=== PATIENT | female | born 1995 | race Asian ===

== ENCOUNTER 2020-03-08 22:35 | Emergency (ER) | payer MEDICAID ==
[~2020-03-08] VITALS: Ht 152.4 cm; Wt 51.7 kg
[2020-03-08 22:49] VITALS: BP 111/86
--- NOTE | 2020-03-08 23:00 | NUR ---
PT C/O SOB AND COUGH ALONG WITH CHEST PRESSURE X 2-3 DAYS. COUGH IS NONPRODUCTIVE, PT AFEBRILE, NO N/V/D. LUNG SOUNDS CLEAR. PT DENIES PREVIOUS TESTING FOR COVID. PT PLACED IN GOWN, BED IN LOWEST POSITION AND SIDERAIL UP X 1. NKA NO HX
--- NOTE | 2020-03-08 23:24 | NUR ---
EKG PERFORMED AT BEDSIDE. EKG READS SINUS RHYTHM @ 76
[2020-03-08 23:40] LABS: BASOPHILS % (AUTO) 0.6 % (0.0-2.0); EOSINOPHILS # (AUTO) 0.4 K/uL (0-0.4); EOSINOPHILS % (AUTO) 7.2 % (0.0-4.0); HEMATOCRIT 40.6 % (36-48); HEMOGLOBIN 13.8 g/dL (12.0-16.0); LYMPHOCYTES # (AUTO) 2.6 K/uL (2.5-16.5); LYMPHOCYTES % (AUTO) 42.9 % (20.5-51.1); MEAN CORPUSCULAR HEMOGLOBIN 33 pg (27-31); MEAN CORPUSCULAR HGB CONC 34 g/dL (33-37); MEAN CORPUSCULAR VOLUME 95.4 fL (80-94); MONOCYTES # (AUTO) 0.5 K/uL (0.8-1.0); MONOCYTES % (AUTO) 7.6 % (1.7-9.3); NEUTROPHILS # (AUTO) 2.5 K/uL (1.8-7.7); NEUTROPHILS % (AUTO) 41.7 % (42.2-75.2); PLATELET COUNT (AUTO) 186 K/uL (140-450); RED BLOOD CELL COUNT(AUTO) 4.25 MIL/uL (4.20-5.40); RED CELL DISTRIBUTION WIDTH 12.8 % (11.6-13.7)
--- NOTE | 2020-03-08 23:49 | NUR ---
X-RAY AT BEDSIDE
[2020-03-08 23:54] LABS: ANION GAP 14.9 (8-16); CREATININE 0.7 mg/dL (0.6-1.3); POTASSIUM 3.9 mmol/L (3.5-5.1)
[2020-03-09] LABS: ALBUMIN 4.4 g/dL (3.4-5.0); TOTAL BILIRUBIN 0.7 mg/dL (0.0-1.0)
[2020-03-09 00:40] VITALS: BP 109/82
--- NOTE | 2020-03-09 00:41 | NUR ---
Patient discharged with v/s stable. Written and verbal after care instructions given and explained. Patient alert, oriented and verbalized understanding of instructions. Ambulatory with steady gait. All questions addressed prior to discharge. ID band removed. Patient advised to follow up with PMD. Rx of ALBUTEROL, AFRIN, AND FLONASE given. Patient educated on indication of medication including possible reaction and side effects. Opportunity to ask questions provided and answered.
== END 2020-03-09 00:46 | disposition home or self-care (01) ==
LOC: MED 22:35
DX: J30.9 Allergic rhinitis, unspecified (principal); J40 Bronchitis, not specified as acute or chronic
CPT/HCPCS: 36415; 71045; 80053; 84484; 85025; 93005; 99285

== ENCOUNTER 2020-04-18 07:42 | Emergency (ER) | payer MEDICAID ==
[~2020-04-18] VITALS: Ht 154.9 cm; Wt 51.3 kg
[2020-04-18 08:20] VITALS: BP 101/56
--- NOTE | 2020-04-18 08:34 | NUR ---
24/F BIB SELF C/O R THIGH ABCESS X4 DAYS. DENIES N/V/D; SKIN IS PINK/WARM/DRY; AAOX4 WITH EVEN AND STEADY GAIT; LUNGS CLEAR BL; HR EVEN AND REGULAR; PT DENIES ANY FEVER, CP, SOB, OR COUGH AT THIS TIME; PATIENT STATES PAIN OF 7/10 AT THIS TIME. PATIENT POSITIONED FOR COMFORT; HOB ELEVATED; BEDRAILS UP X1; BED DOWN. ER MD MADE AWARE OF PT STATUS.
[2020-04-18 08:47] VITALS: BP 101/56
--- NOTE | 2020-04-18 08:48 | NUR ---
Patient discharged with v/s stable. Written and verbal after care instructions given and explained. Patient alert, oriented and verbalized understanding of instructions. Ambulatory with steady gait. All questions addressed prior to discharge. ID band removed. Patient advised to follow up with PMD. Rx of Keflex 500mg, Bactrim 800mg, and 600mg motrin given. Patient educated on indication of medication including possible reaction and side effects. Opportunity to ask questions provided and answered.
== END 2020-04-18 08:48 | disposition home or self-care (01) ==
LOC: MED 07:42
DX: L02.415 Cutaneous abscess of right lower limb (principal); L03.115 Cellulitis of right lower limb
CPT/HCPCS: 99283

== ENCOUNTER 2020-04-21 08:49 | Emergency (ER) | payer MEDICAID ==
[~2020-04-21] VITALS: Ht 162.6 cm; Wt 55.8 kg
[2020-04-21 08:58] VITALS: BP 132/78
[2020-04-21] MEDS ORDERED: LIDOCAINE MPF 1% 5 ML ONE (09:05)
--- NOTE | 2020-04-21 09:06 | NUR ---
PT PLACED IN BED 12.
--- NOTE | 2020-04-21 09:10 | NUR ---
Dr. Cespedes at pt bedside.
--- NOTE | 2020-04-21 09:11 | NUR ---
24 y/o female c/o absess on right thigh X1week, 8/10 pain describes as pressure-like radiating to right leg. Denies PMH, RX NKA
[2020-04-21 09:28] VITALS: BP 132/78
--- NOTE | 2020-04-21 09:28 | NUR ---
Patient discharged with v/s stable. Written and verbal after care instructions given and explained. Patient alert, oriented and verbalized understanding of instructions. Ambulatory with steady gait. All questions addressed prior to discharge. ID band removed. Patient advised to follow up with PMD. Rx of bactrim DS 800mg-160mg tab BID PO given. Patient educated on indication of medication including possible reaction and side effects. Opportunity to ask questions provided and answered.
== END 2020-04-21 09:28 | disposition home or self-care (01) ==
LOC: MED 08:49
DX: L02.31 Cutaneous abscess of buttock (principal)
CPT/HCPCS: 10060; 99283; J2001

== ENCOUNTER 2020-04-23 09:22 | Emergency (ER) | payer MEDICAID ==
[~2020-04-23] VITALS: Ht 160 cm; Wt 51.7 kg
[2020-04-23 09:29] VITALS: BP 98/61
--- NOTE | 2020-04-23 09:32 | NUR ---
Patient ambulated to lobby with steady gait
--- NOTE | 2020-04-23 09:35 | NUR ---
BIBS from home for Pt recheck of abscess to right buttocks. Pt seen at [facility] 2 days ago and given antibiotics. NKDA [facility] denies, none VVS, resp even and unlabored, moving all exts w/o difficulty, in NAD Will continue to monitor Addendum: 04/23/20 at 1023 by [email or web address] Note time 1004
--- NOTE | 2020-04-23 10:00 | NUR ---
PT AMBULATED TO BED 11 WITH STEADY GAIT
--- NOTE | 2020-04-23 10:15 | NUR ---
Dr. Gonzalez at bedside to examine patient
--- NOTE | 2020-04-23 10:35 | NUR ---
NO NURSING INTERVENTIONS NEEDED
[2020-04-23 10:39] VITALS: BP 98/61
== END 2020-04-23 10:39 | disposition home or self-care (01) ==
LOC: MED 09:22
DX: L02.415 Cutaneous abscess of right lower limb (principal); Z48.01 Encounter for change or removal of surgical wound dressing
CPT/HCPCS: 99282

== ENCOUNTER 2020-06-11 13:14 | Emergency (ER) | payer MEDICAID ==
[~2020-06-11] VITALS: Ht 154.9 cm; Wt 51.7 kg
--- NOTE | 2020-06-11 13:16 | NUR ---
Patient ambulated to bed 4. RN evaluating the patient at bedside.
[2020-06-11 13:20] VITALS: BP 110/67
--- NOTE | 2020-06-11 13:30 | NUR ---
24 Y/O FEMALE C/O PAIN 6/10 STABBING,TO RIGHT BUTTOCK. PT HAS ABSCESS X6 DAYS. PT TOOK IBUPROFEN WITH RELIEF OF PAIN. DENIES TAKING ANYTHING FOR PAIN TODAY. PT STATES SHE USED IODINE TO CLEAN THE ABSCESS AND COVERED IT WITH A GAUZE PAD. AREA IS RED, SWOLLEN AND SKIN NOT INTACT. PT DENIES N/V/D/SOB. NKA PMH: GERD AND BOILS ON RIGHT BUTTOCK
--- NOTE | 2020-06-11 14:04 | NUR ---
LUDMILA SINCLAIR AT PT BEDSIDE FOR FURTHER EVALUATION
--- NOTE | 2020-06-11 14:06 | NUR ---
Female Baking Assistant accompanied female patient for examination of abscess on right buttock.
[2020-06-11] MEDS ORDERED: LIDOCAINE MPF 1% 10 MG/ML VIAL INJ ONE (14:10)
[2020-06-11] MEDS ORDERED: KETOROLAC 30 MG/ML VIAL IM ONE (14:10)
--- NOTE | 2020-06-11 14:12 | NUR ---
I&D SET UP AT BED SIDE PA NOTIFIED
--- NOTE | 2020-06-11 14:20 | NUR ---
PA AT BEDSIDE FOR I/D. CHAPERONED PROCEDURE.
--- NOTE | 2020-06-11 14:32 | NUR ---
EMT AT BEDSIDE FOR WOUND DRESSING. CHAPERONED.
--- NOTE | 2020-06-11 14:38 | NUR ---
PT WOUND CLEANED WITH NORMAL SALINE AND DRESSED WITH NON-ADHERENT GUAZE PAD AND SECURED WITH MEDICAL TAPE. RN FEMALE CHERRY DIPPER PRESENT DURING HOSPICE CLINICAL SUPERVISOR WHILE DRESSING WOUND. PA NOTIFIED
[2020-06-11 14:49] VITALS: BP 110/67
--- NOTE | 2020-06-11 14:50 | NUR ---
Patient discharged with v/s stable. Written and verbal after care instructions given and explained. Patient alert, oriented and verbalized understanding of instructions. Ambulatory with steady gait. All questions addressed prior to discharge. ID band removed. Patient advised to follow up with PMD. Rx of NAPROSYN 500 MG TAB PO AND clindamycin 300 MG TAB PO given. Patient educated on indication of medication including possible reaction and side effects. Opportunity to ask questions provided and answered.
== END 2020-06-11 14:50 | disposition home or self-care (01) ==
LOC: MED 13:14
DX: L02.31 Cutaneous abscess of buttock (principal); K21.9 Gastro-esophageal reflux disease without esophagitis
CPT/HCPCS: 10060; 96372; 99283; J1885; J2001

== ENCOUNTER 2020-06-13 10:13 | Emergency (ER) | payer MEDICAID ==
[~2020-06-13] VITALS: Ht 154.9 cm; Wt 51.7 kg
[2020-06-13 10:27] VITALS: BP 103/66
[2020-06-13 11:49] VITALS: BP 103/66
== END 2020-06-13 11:30 | disposition home or self-care (01) ==
LOC: MED 10:13
DX: L02.31 Cutaneous abscess of buttock (principal); R07.9 Chest pain, unspecified; K21.9 Gastro-esophageal reflux disease without esophagitis; Z48.00 Encounter for change or removal of nonsurgical wound dressing
CPT/HCPCS: 93005; 99283

== ENCOUNTER 2021-06-25 09:39 | Emergency (ER) | payer MEDICAID ==
[~2021-06-25] VITALS: Ht 152.4 cm; Wt 49.9 kg
[2021-06-25 09:42] VITALS: BP 113/75
--- NOTE | 2021-06-25 10:00 | NUR ---
25 y/o Female BIB self for c/o left thigh abcess x 10 days. States she was seen for the same issue 5 days ago without any relief. Left thigh appears red and with an abcess like area to thigh and tender to touch. Pmhx: Denies Allergies: Denies Home meds: Tylenol 500mg, Augmentin
--- NOTE | 2021-06-25 10:05 | NUR ---
Female District Court Judge accompanied female patient for cyst draining left inner leg.
[2021-06-25] MEDS ORDERED: CEPH-588 PO (10:09)
[2021-06-25] MEDS ORDERED: SULF-59 PO (10:09)
[2021-06-25] MEDS: LIDOCAINE MPF 1% 10 MG/ML VIAL INJ ONE (10:12)
[2021-06-25] MEDS: SULFAMETH/TRIMETH DS 800/160MG 1 TAB PO ONE (10:22)
[2021-06-25] MEDS: cephALEXin 500 MG CAP PO ONE (10:24)
[2021-06-25 10:27] VITALS: BP 110/72
--- NOTE | 2021-06-25 10:27 | NUR ---
Patient discharged with v/s stable. Written and verbal after care instructions given and explained with teachback. Patient alert, oriented and verbalized understanding of instructions. Ambulatory with steady gait. All questions addressed prior to discharge. ID band removed. Patient advised to follow up with PMD. Rx of bactrim ds/keflex, given. Patient educated on indication of medication including possible reaction and side effects. Opportunity to ask questions provided and answered.
== END 2021-06-25 10:27 | disposition home or self-care (01) ==
LOC: MED 09:39
DX: L02.416 Cutaneous abscess of left lower limb (principal); K21.9 Gastro-esophageal reflux disease without esophagitis
CPT/HCPCS: 99284

== ENCOUNTER 2021-06-27 09:11 | Emergency (ER) | payer MEDICAID ==
[~2021-06-27] VITALS: Ht 152.4 cm; Wt 48.1 kg
[~2021-06-27 09:11] MED LIST: CEPH-588 PO; SULF-59 PO
[2021-06-27 09:14] VITALS: BP 104/69
[2021-06-27 10:37] VITALS: BP 107/67
--- NOTE | 2021-06-27 10:38 | NUR ---
Patient discharged with v/s stable. Written and verbal after care instructions given and explained. Patient verbalized understanding. Ambulatory with steady gait. All questions addressed prior to discharge. Advised to follow up with PMD.
== END 2021-06-27 10:38 | disposition home or self-care (01) ==
LOC: MED 09:11
DX: L02.416 Cutaneous abscess of left lower limb (principal); Z48.00 Encounter for change or removal of nonsurgical wound dressing
CPT/HCPCS: 99282